=== PATIENT | female | born 1995 | race Two or more races ===

== ENCOUNTER 2017-09-28 17:41 | Emergency (ER) | payer SELFPAY ==
[2017-09-28 18:01] VITALS: BP 141/68
--- NOTE | 2017-09-28 18:14 | XRAY Preliminary Report ---
Exam: XR WRIST 4 VIEW RT IMPRESSION: Normal wrist radiography. [facility] SITE ID: [id number]
--- NOTE | 2017-09-28 18:14 | XRAY Report ---
EXAM: RIGHT WRIST RADIOGRAPHY EXAM DATE: 09/28/2017 06:02 PM. CLINICAL HISTORY: Trauma. Wrist pain after fall for 4 days. COMPARISON: None. TECHNIQUE: 4 views. FINDINGS: Bones: Normal. No fractures or bone lesions. Joints: Normal. No subluxations. Soft Tissues: Normal. No soft tissue swelling. IMPRESSION: Normal wrist radiography. [facility] Referring Provider Line: [phone] SITE ID: [id number]
--- NOTE | 2017-09-28 20:28 | ED Physician Documentation ---
PD HPI UPPER EXT INJURY - Stated complaint Stated Complaint: R ARM INJ - Chief complaint Chief Complaint: Ext Problem - History obtained from History obtained from: Patient - History of Present Illness Location: Right, Shoulder Type of injury: Fall Where injury occurred: Other (ski slope) Timing - onset: How many days ago (2) Timing - details: Abrupt onset Improved by: Rest Worsened by: Moving Associated symptoms: No: Weakness, Numbness, Tingling, Swelling, Discolored Similar symptoms before: Has not had sx before Recently seen: Not recently seen - Additonal information Additional information: patient fell while snowboarding 2 days ago onto her right side, c/o right arm pain, predominantly right shoulder and right wrist. she is right-hand dominant Review of Systems Musculoskeletal: reports: Joint pain (right shoulder and right wrist). denies: Neck pain, Back pain, Extremity pain, Extremity swelling, Joint swelling Neurologic: denies: Focal weakness, Numbness PD PAST MEDICAL HISTORY - Past Medical History Past Medical History: No - Past Surgical History Past Surgical History: No - Present Medications Home Medications: Ambulatory Orders Medication Instructions Recorded Confirmed No Known Home Medications [No 09/28/17 09/28/17 Known Home Medications] - Allergies Allergies/Adverse Reactions: Allergies Allergy/AdvReac Type Severity Reaction Status Date / Time No Known Drug Allergies Allergy Verified 09/28/17 17:45 - Social History Does the pt smoke?: No Smoking Status: Never smoker Does the pt drink ETOH?: Yes ETOH Use: Wine, Beer, Liquor Does the pt have substance abuse?: No - Immunizations Immunizations are current?: Yes - POLST Patient has POLST: No PD ED PE NORMAL - Vitals Vital signs reviewed: Yes - General General: Alert and oriented X 3, No acute distress, Well developed/nourished - Derm Derm: Normal color, Warm and dry - Extremities Extremities: No deformity, No tenderness to palpate, No edema, Other (slow but full ROM in right wrist, right shoulder) - Neuro Neuro: No motor deficit, No sensory deficit Results - Vitals Vitals: Vital Signs - 24 hr 09/28/17 17:43 Temperature 36.8 C Heart Rate 74 Respiratory 16 Rate Blood Pressure 141/68 H O2 Saturation 99 Oxygen O2 Source Room air - Rads (name of study) right wrist xrays Radiology: Prelim report reviewed, See rad report PD MEDICAL DECISION MAKING - ED course Complexity details: reviewed results, considered differential, d/w patient ED course: patient declined analgesics in ED; she says ibuprofen has been adequately controlling the pain Departure - Departure Disposition: 01 Home, Self Care Clinical Impression: Muscle strain Condition: Good Instructions: ED Sprain Shoulder, ED Sling Discharge Date/Time: 09/28/17 21:14
== END 2017-09-28 21:14 | disposition home or self-care (01) ==
LOC: ED 17:41
DX: S46.911A Strain of unspecified muscle, fascia and tendon at shoulder and upper arm level, right arm, initial encounter (principal); S66.811A Strain of other specified muscles, fascia and tendons at wrist and hand level, right hand, initial encounter; V00.311A Fall from snowboard, initial encounter; Y93.29 Activity, other involving ice and snow
CPT/HCPCS: 99282; 99283